=== PATIENT | female | born 1965 | race Caucasian/White ===

== ENCOUNTER → 2016-08-25 | Outpatient (CLI) | payer OTHER ==
[2016-08-27 08:10] LABS: HEMATOCRIT 34.6 % (36.0-47.0); HEMOGLOBIN 11.6 g/dL (12.0-15.5); HGB HCT DIFFERENCE 0.2; MEAN CORPUSCULAR HEMOGLOBIN 28.8 pg (27.0-33.4); MEAN CORPUSCULAR HGB CONC 33.5 g/dL (32.0-36.0); MEAN CORPUSCULAR VOLUME 86 fl (80-97); RED BLOOD COUNT 4.03 10^6/uL (3.72-5.28); RED CELL DISTRIBUTION WIDTH 12.5 % (11.5-14.0); WHITE BLOOD COUNT 7.8 10^3/uL (4.0-10.5)
[2016-08-27 08:35] LABS: ALANINE AMINOTRANSFERASE 27 U/L (9-52); ALBUMIN 4.4 g/dL (3.5-5.0); ALKALINE PHOSPHATASE 61 U/L (38-126); ANION GAP 13 (5-19); ASPARTATE AMINO TRANSFERASE 24 U/L (14-36); BILIRUBIN,DIRECT 0.3 mg/dL (0.0-0.4); BILIRUBIN,TOTAL 0.4 mg/dL (0.2-1.3); BLOOD UREA NITROGEN 16 mg/dL (7-20); CALCIUM 9.8 mg/dL (8.4-10.2); CARBON DIOXIDE 28 mmol/L (22-30); CHLORIDE 104 mmol/L (98-107); CHOLESTEROL 184.34 mg/dL (0-200); CREATININE RESULT 0.76 mg/dL (0.52-1.25); Direct HDL 40 mg/dL (>40); GLUCOSE 74 mg/dL (75-110); MAGNESIUM 2.1 mg/dL (1.6-2.3); POTASSIUM 4.5 mmol/L (3.6-5.0); SODIUM 145.4 mmol/L (137-145); TOTAL PROTEIN 7.5 g/dL (6.3-8.2); TRIGLYCERIDES 179 mg/dL (<150)
[2016-08-27 08:36] LABS: BASOPHILS % (MANUAL) 0 % (0-2); EOSINOPHILS % (MANUAL) 2 % (0-6); TOTAL CELLS COUNTED 100
[2016-08-27 08:38] LABS: LYMPHOCYTES % (MANUAL) 74 % (13-45); RBC MORPHOLOGY COMMENT NORMO-CYTIC/CHROMIC
[2016-08-27 08:45] LABS: DIRECT LDL 86 mg/dL (<100)
[2016-08-27 08:50] LABS: VLDL CHOLESTEROL 35.8 mg/dL (10-31)
[2016-08-27 17:09] LABS: PATH REVIEW PATHOLOGIST REVIEWED
== END ==
LOC: OD 09:33
PROVIDERS: ATTEND Physician Assistant
DX: E55.9 Vitamin D deficiency, unspecified (principal); E66.9 Obesity, unspecified; E78.5 Hyperlipidemia, unspecified; I10 Essential (primary) hypertension
CPT/HCPCS: 36415; 80053; 80061; 82306; 83735; 84443; 85025

== ENCOUNTER → 2016-09-09 | Outpatient (CLI) | payer OTHER ==
--- NOTE | 2016-09-09 15:09 | WOMENS IMAGING REPORT ---
EXAM DESCRIPTION: BILAT SCREENING MAMMO W/CAD COMPLETED DATE/TIME: 09/09/2016 10:52 am REASON FOR STUDY: Z12.31, ROUTINE SCREENING MAMMO Z12.31 COMPARISON: Multiple since 2013 TECHNIQUE: Standard craniocaudal and mediolateral oblique views of each breast recorded using digita l acquisition. LIMITATIONS: None. FINDINGS: Findings present which are benign by mammographic criteria. No suspicious masses, calcifi cations or architectural distortion. Pertinent benign findings: Right breast lateral 9 o'clock stereotactic clip with a few adjacent calci fications. Prior biopsy was benign. Read with the assistance of CAD. .[facility] - R2 Cenova Version 1.3 .[facility] - R2 Cenova Version 1.3 .[facility] - R2 Cenova Version 2.4 .[facility] R2 Cenova Version 2.4 .[facility] - R2 Coil Machine Supervisor Version 9.2 Benign mammographic findings may include one or more of the following: Smooth masses, popcorn/rim/co arse calcifications, asymmetries, post-procedure changes, and lesions with long-standing stability. IMPRESSION: BENIGN MAMMOGRAPHIC FINDINGS. BIRADS 2 BREAST DENSITY: b. There are scattered areas of fibroglandular density. BIRAD: 2 BENIGN FINDING(S) RECOMMENDATION: ROUTINE SCREENING COMMENT: The patient has been notified of the results by letter per SA requirements. Additional no tification policies are in place for contacting patient with suspicious or incomplete findings. Quality ID #[id number]: The [employer] recommends an annual screening mammogram for women aged 40 years or over. This facility utilizes a reminder system to ensure that all patients receive reminder letters, and/or direct phone calls for appointments. This includes reminders for routine scr eening mammograms, diagnostic mammograms, or other Breast Imaging Interventions when appropriate. Th is patient will be placed in the appropriate reminder system. The [employer] (ACR) has developed recommendations for screening MRI of the breast s in certain patient populations, to be used in conjunction with mammography. Breast MRI surveillanc e may be appropriate for women with more than 20% lifetime risk of developing breast cancer as deter mined by genetic testing, significant family history of the disease, or history of mantle radiation f or Hodgkins Disease. ACR Practice Guidelines 2008. TECHNICAL DOCUMENTATION: FINDING NUMBER: (1) ASSESSMENT: (1) JOB ID: [id number] [email or web address]- All Rights Reserved
== END ==
LOC: WI 10:19
PROVIDERS: ATTEND Physician Assistant
DX: Z12.31 Encounter for screening mammogram for malignant neoplasm of breast (principal)
CPT/HCPCS: 77067; G0202

== ENCOUNTER → 2016-09-30 | Outpatient (CLI) | payer OTHER ==
--- NOTE | 2016-09-30 12:03 | EKG REPORT ---
SEVERITY:- ABNORMAL ECG - SINUS RHYTHM LEFT BUNDLE BRANCH BLOCK : Confirmed by: Teresa Rodriguez MD 30-Sep-2016 12:02:59
== END ==
LOC: OD 11:13
PROVIDERS: ATTEND Physician Assistant
DX: I10 Essential (primary) hypertension (principal)
CPT/HCPCS: 93005; 93010

== ENCOUNTER → 2017-04-29 | Outpatient (CLI) | payer OTHER ==
[2017-04-29 12:10] LABS: HEMATOCRIT 36.2 % (36.0-47.0); HEMOGLOBIN 12.3 g/dL (12.0-15.5); MEAN CORPUSCULAR HEMOGLOBIN 29.3 pg (27.0-33.4); MEAN CORPUSCULAR VOLUME 86 fl (80-97); PLATELET COUNT 357 10^3/uL (150-450); WHITE BLOOD COUNT 6.1 10^3/uL (4.0-10.5)
[2017-04-29 12:35] LABS: ALANINE AMINOTRANSFERASE 31 U/L (9-52); ALKALINE PHOSPHATASE 55 U/L (38-126); ANION GAP 14 (5-19); ASPARTATE AMINO TRANSFERASE 29 U/L (14-36); BILIRUBIN,DIRECT 0.2 mg/dL (0.0-0.4); BILIRUBIN,TOTAL 0.5 mg/dL (0.2-1.3); BLOOD UREA NITROGEN 16 mg/dL (7-20); CALCIUM 10.5 mg/dL (8.4-10.2); CARBON DIOXIDE 28 mmol/L (22-30); CHLORIDE 102 mmol/L (98-107); CHOLESTEROL 175.17 mg/dL (0-200); GLUCOSE 82 mg/dL (75-110); SODIUM 143.9 mmol/L (137-145); TOTAL PROTEIN 7.4 g/dL (6.3-8.2); TRIGLYCERIDES 109 mg/dL (<150)
[2017-04-29 12:46] LABS: DIRECT LDL 103 mg/dL (<100)
[2017-04-29 12:51] LABS: FREE T3 3.98 pg/mL (2.77-5.27); FREE T4 (FREE THYROXINE) 1.05 ng/dL (0.78-2.19)
== END ==
LOC: OD 10:17
PROVIDERS: ATTEND Nurse Practitioner Family
DX: N95.1 Menopausal and female climacteric states (principal); E78.5 Hyperlipidemia, unspecified; E53.8 Deficiency of other specified B group vitamins; Z13.1 Encounter for screening for diabetes mellitus; E55.9 Vitamin D deficiency, unspecified; Z13.9 Encounter for screening, unspecified
CPT/HCPCS: 36415; 80053; 80061; 82306; 82607; 83036; 84439; 84443; 84481; 85027

== ENCOUNTER → 2017-07-14 | Outpatient (CLI) | payer OTHER ==
--- NOTE | 2017-07-14 17:23 | RADIOLOGY REPORT (SQ) ---
EXAM DESCRIPTION: C SP 4 OR 5 VIEWS COMPLETED DATE/TIME: 07/14/2017 1:45 pm REASON FOR STUDY: Other specified dorsopathies, cervical region COMPARISON: None. NUMBER OF VIEWS: Five views. TECHNIQUE: AP, lateral, obliques and odontoid radiographic images acquired of the cervical spine. LIMITATIONS: None. FINDINGS: MINERALIZATION: Normal. ALIGNMENT: Anatomic. VERTEBRAE: Vertebral bodies of normal height. DISCS: Disc spaces are narrowed from C4 to C7. Anterior and posterior osteophytes are present at C5- 6 and C6-7 FORAMINA: There is narrowing of the right neural foramina at C5-6 and C6-7 secondary to uncovertebral osteophytes. There is mild narrowing of the left neural foramen at C6-7. LATERAL AND POSTERIOR ELEMENTS: Facets, lateral masses and spinous processes without significant find ings. HARDWARE: None in the spine. SOFT TISSUES: No masses or calcifications. Lung apices clear. OTHER: No other significant finding. IMPRESSION: Degenerative disc disease and spondylosis. TECHNICAL DOCUMENTATION: JOB ID: [id number] [employer]- All Rights Reserved Reading location - IP/workstation name: [email or web address]
== END ==
LOC: OD 13:23
PROVIDERS: ATTEND Nurse Practitioner Family
DX: M53.82 Other specified dorsopathies, cervical region (principal); M25.511 Pain in right shoulder
CPT/HCPCS: 72050

== ENCOUNTER → 2017-11-10 | Outpatient (CLI) | payer OTHER ==
[2017-11-10 09:04] LABS: ABSOLUTE EOSINOPHILS # (AUTO) 0.3 10^3/uL (0.0-0.6); ABSOLUTE LYMPHOCYTES (AUTO) 3.8 10^3/uL (0.5-4.7); ABSOLUTE MONOCYTES (AUTO) 0.7 10^3/uL (0.1-1.4); ABSOLUTE NEUT (AUTO) 2.1 10^3/uL (1.7-8.2); BASOPHILS % (AUTO) 0.6 % (0-2); EOSINOPHILS % (AUTO) 4.3 % (0-6); HEMATOCRIT 37.6 % (36.0-47.0); HEMOGLOBIN 12.7 g/dL (12.0-15.5); LYMPHOCYTES % (AUTO) 54.9 % (13-45); MEAN CORPUSCULAR HEMOGLOBIN 29.1 pg (27.0-33.4); MEAN CORPUSCULAR HGB CONC 33.9 g/dL (32.0-36.0); MEAN CORPUSCULAR VOLUME 86 fl (80-97); PLATELET COUNT 366 10^3/uL (150-450); RED BLOOD COUNT 4.37 10^6/uL (3.72-5.28); RED CELL DISTRIBUTION WIDTH 12.3 % (11.5-14.0); SEGMENTED NEUTROPHILS % (AUTO) 30.2 % (42-78); TOTAL CELLS COUNTED % (AUTO) 100 %
[2017-11-10 09:45] LABS: ALANINE AMINOTRANSFERASE 23 U/L (9-52); ALBUMIN 4.6 g/dL (3.5-5.0); ALKALINE PHOSPHATASE 54 U/L (38-126); ANION GAP 14 (5-19); ASPARTATE AMINO TRANSFERASE 27 U/L (14-36); BILIRUBIN,DIRECT 0.4 mg/dL (0.0-0.4); BILIRUBIN,TOTAL 0.4 mg/dL (0.2-1.3); BLOOD UREA NITROGEN 13 mg/dL (7-20); CALCIUM 9.6 mg/dL (8.4-10.2); CARBON DIOXIDE 29 mmol/L (22-30); CHLORIDE 103 mmol/L (98-107); CHOLESTEROL 169.23 mg/dL (0-200); GLUCOSE 81 mg/dL (75-110); POTASSIUM 5.1 mmol/L (3.6-5.0); SODIUM 145.7 mmol/L (137-145); TOTAL PROTEIN 7.7 g/dL (6.3-8.2); TRIGLYCERIDES 182 mg/dL (<150)
[2017-11-10 09:55] LABS: DIRECT LDL 88 mg/dL (<100)
[2017-11-10 09:58] LABS: VLDL CHOLESTEROL 36.4 mg/dL (10-31)
== END ==
LOC: OD 08:03
PROVIDERS: ATTEND Physician Assistant
DX: K59.09 Other constipation (principal); E78.5 Hyperlipidemia, unspecified
CPT/HCPCS: 36415; 80053; 80061; 84443; 85025

== ENCOUNTER → 2017-11-10 | Outpatient (CLI) | payer OTHER ==
--- NOTE | 2017-11-10 13:13 | WOMENS IMAGING REPORT ---
EXAM DESCRIPTION: BILAT SCREENING MAMMO W/CAD COMPLETED DATE/TIME: 11/10/2017 12:16 pm REASON FOR STUDY: BILATERAL SCREENING MAMMO/Z12.31 Z12.31 COMPARISON: Multiple since 2013 TECHNIQUE: Standard craniocaudal and mediolateral oblique views of each breast recorded using digita l acquisition. LIMITATIONS: None. FINDINGS: Findings present which are benign by mammographic criteria. No suspicious masses, calcifi cations or architectural distortion. Pertinent benign findings: Stereotactic biopsy clip in the lower outer quadrant right breast. Read with the assistance of CAD. .[facility] - R2 Cenova Version 1.3 .[facility] - R2 Cenova Version 1.3 .[facility] - R2 Cenova Version 2.4 .[facility] - R2 Cenova Version 2.4 .[facility] - R2 Tractor Drill Operator Version 9.2 Benign mammographic findings may include one or more of the following: Smooth masses, popcorn/rim/co arse calcifications, asymmetries, post-procedure changes, and lesions with long-standing stability. IMPRESSION: BENIGN MAMMOGRAPHIC FINDINGS. BIRADS 2 BREAST DENSITY: b. There are scattered areas of fibroglandular density. BIRAD: 2 BENIGN FINDING(S) RECOMMENDATION: ROUTINE SCREENING Please continue yearly bilateral screening mammography/tomosynthesis in November 2018. COMMENT: The patient has been notified of the results by letter per SA requirements. Additional no tification policies are in place for contacting patient with suspicious or incomplete findings. Quality ID #[id number]: The [employer] recommends an annual screening mammogram for women aged 40 years or over. This facility utilizes a reminder system to ensure that all patients receive reminder letters, and/or direct phone calls for appointments. This includes reminders for routine scr eening mammograms, diagnostic mammograms, or other Breast Imaging Interventions when appropriate. Th is patient will be placed in the appropriate reminder system. The [employer] (ACR) has developed recommendations for screening MRI of the breast s in certain patient populations, to be used in conjunction with mammography. Breast MRI surveillanc e may be appropriate for women with more than 20% lifetime risk of developing breast cancer as deter mined by genetic testing, significant family history of the disease, or history of mantle radiation f or Hodgkins Disease. ACR Practice Guidelines 2008. TECHNICAL DOCUMENTATION: FINDING NUMBER: (1) ASSESSMENT: (1) JOB ID: [id number] [employer]- All Rights Reserved Reading location - IP/workstation name: [email or web address]
== END ==
LOC: WI 09:28
PROVIDERS: ATTEND Obstetrics & Gynecology Gynecology
DX: Z12.31 Encounter for screening mammogram for malignant neoplasm of breast (principal)
CPT/HCPCS: 77067

== ENCOUNTER → 2018-06-29 | Outpatient (CLI) | payer OTHER ==
[2018-06-29 10:33] LABS: CHOLESTEROL 162.17 mg/dL (0-200); TRIGLYCERIDES 134 mg/dL (<150)
[2018-06-29 10:44] LABS: DIRECT LDL 99 mg/dL (<100)
== END ==
LOC: OD 09:07
PROVIDERS: ATTEND Family Medicine
DX: E78.00 Pure hypercholesterolemia, unspecified (principal)
CPT/HCPCS: 36415; 80061

== ENCOUNTER → 2018-11-30 | Outpatient (CLI) | payer OTHER ==
--- NOTE | 2018-11-30 17:08 | WOMENS IMAGING REPORT ---
EXAM DESCRIPTION: 3D SCREENING MAMMO BILAT COMPLETED DATE/TIME: 11/30/2018 8:42 am REASON FOR STUDY: Z12.31 SCREENING MAMMO Z12.31 ENCNTR SCREEN MAMMOGRAM FOR MALIGNANT NEOPLASM OF B RE COMPARISON: Multiple since 2013 EXAM PARAMETERS: Standard craniocaudal and mediolateral oblique views of each breast recorded using digital acquisition and breast tomosynthesis. Read with the assistance of CAD. .[facility] - [employer] Version 9.2 LIMITATIONS: None. FINDINGS: Findings present which are benign by mammographic criteria. No suspicious masses, calcific ations or architectural distortion. Pertinent benign findings: Old biopsy clip right far lateral breast. Benign mammographic findings may include one or more of the following: Smooth masses, popcorn/rim/coa rse calcifications, asymmetries, post-procedure changes, and lesions with long-standing stability. IMPRESSION: BENIGN MAMMOGRAPHIC FINDINGS. BIRADS 2 BREAST DENSITY: b. There are scattered areas of fibroglandular density. BIRAD: ASSESSMENT: 2 BENIGN FINDING(S) RECOMMENDATION: ROUTINE SCREENING COMMENT: The patient has been notified of the results by letter per SA requirements. Additional no tification policies are in place for contacting patient with suspicious or incomplete findings. Quality ID #[id number]: The [employer] recommends an annual screening mammogram for women aged 40 years or over. This facility utilizes a reminder system to ensure that all patients receive reminder letters, and/or direct phone calls for appointments. This includes reminders for routine scr eening mammograms, diagnostic mammograms, or other Breast Imaging Interventions when appropriate. Th is patient will be placed in the appropriate reminder system. TECHNICAL DOCUMENTATION: FINDING NUMBER: (1) ASSESSMENT: (1) JOB ID: [id number] [email or web address]- All Rights Reserved Reading location - IP/workstation name: [email or web address]
== END ==
LOC: WI 08:10
PROVIDERS: ATTEND Obstetrics & Gynecology Gynecology
DX: Z12.31 Encounter for screening mammogram for malignant neoplasm of breast (principal)
CPT/HCPCS: 77063; 77067

== ENCOUNTER → 2019-11-07 | Outpatient (CLI) | payer OTHER ==
[2019-11-07 09:52] LABS: ALBUMIN 4.8 g/dL (3.5-5.0); ALKALINE PHOSPHATASE 65 U/L (38-126); ANION GAP 9 (5-19); ASPARTATE AMINO TRANSFERASE 31 U/L (14-36); BILIRUBIN,DIRECT 0.3 mg/dL (0.0-0.4); BILIRUBIN,TOTAL 0.4 mg/dL (0.2-1.3); BLOOD UREA NITROGEN 11 mg/dL (7-20); CARBON DIOXIDE 34 mmol/L (22-30); CHLORIDE 100 mmol/L (98-107); GLUCOSE 81 mg/dL (75-110); POTASSIUM 4.9 mmol/L (3.6-5.0); TOTAL PROTEIN 7.7 g/dL (6.3-8.2); TRIGLYCERIDES 301 mg/dL (<150)
[2019-11-07 10:03] LABS: DIRECT LDL 94 mg/dL (<100)
[2019-11-07 10:04] LABS: VLDL CHOLESTEROL 60.2 mg/dL (10-31)
== END ==
LOC: OD 08:25
PROVIDERS: ATTEND Nurse Practitioner Family
DX: E55.9 Vitamin D deficiency, unspecified (principal); E78.5 Hyperlipidemia, unspecified; I10 Essential (primary) hypertension
CPT/HCPCS: 36415; 80053; 80061; 82306

== ENCOUNTER → 2019-12-04 | Outpatient (CLI) | payer OTHER ==
--- NOTE | 2019-12-04 09:00 | WOMENS IMAGING REPORT ---
EXAM DESCRIPTION: 3D SCREENING MAMMO BILAT IMAGES COMPLETED DATE/TIME: 12/04/2019 7:33 am REASON FOR STUDY: Z12.31 SCREENING MAMMO Z12.31 ENCNTR SCREEN MAMMOGRAM FOR MALIGNANT NEOPLASM OF B RE COMPARISON: 2015 and subsequent EXAM PARAMETERS: Standard craniocaudal and mediolateral oblique views of each breast recorded using digital acquisition and breast tomosynthesis. Read with the assistance of CAD. .[facility] - [employer] Order Department Supervisor Version 9.2 LIMITATIONS: None. FINDINGS: Findings present which are benign by mammographic criteria. No suspicious masses, calcific ations or architectural distortion. Pertinent benign findings: Post biopsy changes right breast. Stable focal asymmetry central left ernestine ast. Benign mammographic findings may include one or more of the following: Smooth masses, popcorn/rim/coa rse calcifications, asymmetries, post-procedure changes, and lesions with long-standing stability. IMPRESSION: BENIGN MAMMOGRAPHIC FINDINGS. BIRADS 2 BREAST DENSITY: b. There are scattered areas of fibroglandular density. BIRAD: ASSESSMENT: 2 BENIGN FINDING(S) RECOMMENDATION: ROUTINE SCREENING COMMENT: The patient has been notified of the results by letter per MQSA requirements. Additional no tification policies are in place for contacting patient with suspicious or incomplete findings. Quality ID #[id number]: The [employer] recommends an annual screening mammogram for women aged 40 years or over. This facility utilizes a reminder system to ensure that all patients receive reminder letters, and/or direct phone calls for appointments. This includes reminders for routine scr eening mammograms, diagnostic mammograms, or other Breast Imaging Interventions when appropriate. Th is patient will be placed in the appropriate reminder system. TECHNICAL DOCUMENTATION: FINDING NUMBER: (1) ASSESSMENT: (1) JOB ID: [id number] [employer]- All Rights Reserved Reading location - IP/workstation name: [email or web address]
== END ==
LOC: WI 06:57
PROVIDERS: ATTEND Obstetrics & Gynecology Gynecology
DX: Z12.31 Encounter for screening mammogram for malignant neoplasm of breast (principal)
CPT/HCPCS: 77063; 77067